=== PATIENT | male | born 1965 | race Two or more races ===

== ENCOUNTER 2024-08-20 12:29 | Emergency (ER) | payer MEDICAID, OTHER ==
[~2024-08-20] VITALS: Ht 160 cm; Wt 64.4 kg
[2024-08-20 13:54] VITALS: BP 146/88; PULSE 88; RESP 16; TEMP 98.2; O2SAT 97
[2024-08-20] MEDS ORDERED: CEPH500C PO (13:55)
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
[2024-08-20] MEDS: SILVER SULFADIAZINE 1 % TOPICAL CREAM 50GM TOP ONE (14:02)
== END 2024-08-20 14:07 | disposition home or self-care (01) ==
LOC: ER 12:44
DX: T25.221A Burn of second degree of right foot, initial encounter (principal); Z79.899 Other long term (current) drug therapy; X10.1XXA Contact with hot food, initial encounter; Y93.89 Activity, other specified; Y92.89 Other specified places as the place of occurrence of the external cause; Y99.8 Other external cause status

== ENCOUNTER 2024-10-31 15:45 | Inpatient (IN) | payer SELFPAY ==
[~2024-10-31] VITALS: Ht 160 cm; Wt 66.6 kg
[~2024-10-31 15:45] MED LIST: CEPH500C PO
--- NOTE | 2024-10-31 16:55 | ED.PDOC ---
Psychiatric HPI Comments ANNA: HPI: Anabel Historian. Past Medical History: Past Surgical History: HPI: 59y M who presents to the ED for chief complaint of tremors - pt states he has not drank ETOH in the past 2 days and states he has not been feeling well and states he is having whole body tremors - pt states he normally drinks 2x weekly for the past 40 years but states 2 days prior, instead of drinking his normal beer, he drank hard liquor and states he has not been feeling well since - pt otherwise denies any other symptoms in the ED - pt in the ED, has noted BP of 162/95 but otherwise stable vitals in the ED - pt denies these symptoms in the past Past Medical History: gastric ulcer Past Surgical History: denies Social History: endorses ETOH, smoking, and drug use. Medications: ASA, Allergies: denies REVIEW OF SYSTEMS: CONSTITUTIONAL: Denies acute: fever, diaphoresis, chills, HEAD: Denies acute: headache, photophobia Eyes: Denies acute: Double vision, vision loss, eye pain, eye discharge. EARS: Denies acute: tinnitus, hearing loss, ear discharge, ear pain, THROAT: Denies acute: sore throat, swelling, difficulty swallowing , pain with swallowing, change in voice. NECK: Denies acute: neck pain, neck swelling, stiff neck. HEART: Denies acute : chest pain, palpitations, LUNGS: Denies acute: SOB, wheezing, cough, hemoptysis ABDOMEN: Denies acute: abdominal pain, Nausea, Vomiting, diarrhea, melena , hematemesis, hematochezia SKIN: Denies acute: rash, redness, lesions, itchiness. EXTREMITIES: Denies acute: calf pain, numbness, tingling, weakness, denies pain in extremity. Denies acute: Low back pain. Neuro: Denies acute: focal neurological deficit, motor or sensory focal neurological deficit, seizure like activity, confusion, dizziness, change in mental status, loss of bowel or bladder function, cauda equina like symptoms. : Denies acute: dysuria, hematuria, flank pain, increase in urinary frequency. PSYCH: Denies acute: hallucination, suicidal ideation, homicidal ideation. PHYSICAL EXAM: General: ----[id number]----acute distress, awake and alert. Head: normocephalic, atraumatic. Neck: supple, trachea is midline, no swelling. Throat: Normal phonation. Eyes:, no erythema, no purulent discharge, no proptosis, no icterus. Heart: regular rate, regular rhythm, no significant murmur appreciated. Lungs: no apparent respiratory distress, Able to speak in full sentences. No wheezing, no rhonchi, no crackles. No stridors Clear to auscultation bilaterally. Abdomen: non tender to palpation, non distended, soft, no guarding, no rebound, + bowel sounds. Neuro: Awake, Alert, oriented to name, self, situation, follows commands GCS=15. Speech is normal. Noted resting tremors Skin: no petechia, no purpura, no cyanosis, non-pale, not jaundice. Lower extremities: --no - Pitting edema no deformity, no focal swelling, no calf TTP. Makes eye contact. moves all four extremities. Face: no apparent facial droop. Ambulating in the ED independently. ED COURSE: DISCLAIMER: This medical document was created using an electronic medical record system with voice recognition software and computerized dictation system. Although this document has been carefully reviewed, there might still be some phonetic and typographical errors. Occasional wrong-word or "sound-alike" substitutions may have occurred due to the inherent limitations of voice recognition software. These areas are purely typographical due to imperfections of the software programs and do not reflect any compromise in the patient's medical care. Please read the chart carefully and recognize, using context, where these substitutions have occurred. Chief Complaint: Withdrawal Time Seen by MD: 16:04 Primary Care Provider: NONE Information Source: Patient Mode of Arrival: Ambulatory Past Medical History PAST MEDICAL HISTORY: Denies Surgical History: Denies all surgeries Family History Family History: Reviewed,noncontributory to illness Social History Smoker: Non-Smoker Alcohol: Denies ETOH Use Drugs: Denies Drug Use Lives In: Home Was a procedure done? Was a procedure done?: No X-Ray, Labs, Meds, VS Vital Signs Date Time Temp Pulse Resp B/P (MAP) Pulse Ox O2 Delivery O2 Flow Rate FiO2 10/31/24 17:53 78 20 98 Room Air* 0 21 7/12/25 17:53 98.1 78 20 184/106 (132) 98 98.1 10/31/24 16:08 97.4 99 18 162/95 (117) 97 97.4 Lab Test 10/31/24 17:00 10/31/24 16:41 Range/Units Urine Color Yellow Yellow Urine Clarity Clear Clear Urine pH 7.0 5.0-9.0 Urine Specific [place] 1.024 1.001-1.035 Urine Protein Trace H Negative Urine Ketones Negative Negative Urine Blood Trace H Negative /uL Urine Nitrite Negative Negative Urine Bilirubin Negative Negative Urine Urobilinogen Normal Negative mg/dL Urine Leukocyte Esterase Negative Negative /uL Urine RBC 4 0 - 3 /hpf Urine Microscopic WBC 2 0-3 /HPF Urine Squamous Epithelial Cells None seen <5 /hpf Urine Bacteria None seen None Seen /hpf Urine Mucus Few None Seen Urine Glucose Normal Normal mg/dL Urine Opiates Screen Neg NEGATIVE Urine Fentanyl Screen Neg NEGATIVE Urine Barbiturates Screen Neg NEGATIVE Urine Phencyclidine Screen Neg NEGATIVE Urine Amphetamines Screen Neg NEGATIVE Urine Benzodiazepines Screen Neg NEGATIVE Urine Cocaine Screen Neg NEGATIVE Urine Cannabinoids Screen Neg NEGATIVE White Blood Count 8.8 4.4-10.8 10^3/uL Red Blood Count 4.56 4.5-5.90 10^6/uL Hemoglobin 15.7 13.5-17.5 g/dL Hematocrit 45.4 41.0-53.0 % Mean Corpuscular Volume 99.7 80.0-100.0 fL Mean Corpuscular Hemoglobin 34.5 H 28.0-32.0 pg Mean Corpuscular Hemoglobin Concent 34.6 32.0-36.0 g/dL Red Cell Distribution Width 13.3 11.8-14.3 % Platelet Count 274 140-450 10^3/uL Mean Platelet Volume 8.2 6.9-10.8 fL Neutrophils (%) (Auto) 70.4 37.0-80.0 % Lymphocytes (%) (Auto) 19.7 10.0-50.0 % Monocytes (%) (Auto) 7.2 0.0-12.0 % Eosinophils (%) (Auto) 2.1 0.0-7.0 % Basophils (%) (Auto) 0.6 0.0-2.0 % Neutrophils # (Auto) 6.2 1.6-8.6 10 ^3/uL Lymphocytes # (Auto) 1.7 0.4-5.4 10 ^3/uL Monocytes # (Auto) 0.6 0-1.3 10 ^3/uL Eosinophils # (Auto) 0.2 0-0.8 10 ^3/uL Basophils # (Auto) 0.1 0-0.2 10 ^3/uL Nucleated Red Blood Cells 0.0 % Sodium Level 141 136-145 mmol/L Potassium Level 4.0 3.5-5.1 mmol/L Chloride Level 105 98-107 mmol/L Carbon Dioxide Level 26 20-31 mmol/L Anion Gap 10 5-15 Blood Urea Nitrogen 6 L 9-23 mg/dL Creatinine 0.83 0.700-1.30 mg/dL Glomerular Filtration Rate Calc 101 >90 mL/min BUN/Creatinine Ratio 7.2 L 10.0-20.0 Serum Glucose 104 74-106 mg/dL Lactic Acid Level 1.5 0.4-2.0 mmol/L Calcium Level 9.8 8.7-10.4 mg/dL Magnesium Level 1.6 1.6-2.6 mg/dL Total Bilirubin 0.3 0.2-1.0 mg/dL Aspartate Amino Transferase (AST) 44 H 13-40 U/L Alanine Aminotransferase (ALT) 35 7-40 U/L Alkaline Phosphatase 105 46-116 U/L Troponin I High Sensitivity 9 </=54 ng/L Total Protein 7.6 5.7-8.2 g/dL Albumin 4.8 3.2-4.8 g/dL Plasma/Serum Blood Alcohol 21.0 H <10 mg/dL Current Medications Medications (Trade) Dose Ordered Sig/Ivone Route Start Time Stop Time Status Last Admin Sodium Chloride 1,000 ml @ 1,000 mls/hr Q1H ONCE IV 10/31/24 16:30 10/31/24 17:29 DC 10/31/24 17:38 Lorazepam (Ativan Inj) 1 mg ONCE ONCE IV 10/31/24 16:30 10/31/24 16:31 DC 10/31/24 17:38 Pantoprazole Sodium (Protonix) 40 mg ONCE ONCE IV 10/31/24 17:00 10/31/24 17:01 DC 10/31/24 17:38 Patient Education/Counseling: Diagnosis, Treatment Family Education/Counseling: No Family Present Departure 1 Departure Time of Disposition: 16:56 Impression: Primary Impression: Alcohol withdrawal Disposition: ADMITTED INPATIENT Admit to: Tele Condition: Guarded Discharged With: Self Critical Care Note Critical Care Time?: No I personally scribed for POP MESSINA DO ([email or web address]) on 10/31/24 at 16:55. Electronically submitted by Nory Chester ([facility]). I personally scribed for POP MESSINA DO ([email or web address]) on 10/31/24 at 19:18. Electronically submitted by Nory Chester ([facility]). POP MESSINA DO Oct 31, 2024 16:55
[2024-10-31 17:05] LABS: Hematocrit 45.4 % (41.0-53.0); Hemoglobin 15.7 g/dL (13.5-17.5); Mean Corpuscular Hemoglobin 34.5 pg (28.0-32.0); Mean Corpuscular Volume 99.7 fL (80.0-100.0); Nucleated Red Blood Cells % 0.0 %
[2024-10-31 17:28] LABS: Alanine Aminotransferase 35 U/L (7-40); Albumin 4.8 g/dL (3.2-4.8); Alkaline Phosphatase 105 U/L (46-116); Anion Gap 10 (5-15); BUN/Creatinine Ratio 7.2 (10.0-20.0); Bilirubin, Total 0.3 mg/dL (0.2-1.0); Calcium 9.8 mg/dL (8.7-10.4); Carbon Dioxide 26 mmol/L (20-31); Chloride 105 mmol/L (98-107); Glucose 104 mg/dL (74-106); Potassium 4.0 mmol/L (3.5-5.1); Sodium 141 mmol/L (136-145); Total Protein 7.6 g/dL (5.7-8.2)
[2024-10-31 17:32] LABS: Blood Urea Nitrogen 6 mg/dL (9-23); Magnesium 1.6 mg/dL (1.6-2.6)
[2024-10-31] MEDS: SODIUM CHLORIDE 0.9% 1,000 ML IV ONE (17:38)
[2024-10-31] MEDS: PANTOPRAZOLE 40 MG/10 ML VIAL INJ IV ONE (17:38)
[2024-10-31] MEDS: LORazepam 2MG/ML-1ML VIAL IV ONE (17:38)
[2024-10-31 17:53] VITALS: PULSE 78; RESP 20; O2SAT 98
[2024-10-31 18:05] LABS: Urine Protein, UAD TRACE (Negative)
[2024-10-31 18:19] LABS: Amphetamine Screen, Urine Neg (NEGATIVE); Barbiturate Scree,Urine Neg (NEGATIVE); Benzodiazephine Screen, Urine Neg (NEGATIVE); Cannabinoid Screen, Urine Neg (NEGATIVE); Cocaine Screen, Urine Neg (NEGATIVE); Opiate Scree,Urine Neg (NEGATIVE); Phencyclidine Screen, Urine Neg (NEGATIVE)
[2024-10-31] MEDS: THIAMINE HCL 100 MG TAB PO ONE (19:53)
--- NOTE | 2024-10-31 20:20 | DVHHP2 ---
Admitting Diagnosis: Alcohol withdrawal History of Present Illness 59y M who presents to the ED for chief complaint of tremors pt states he has not drank ETOH in the past 2 days and states he has not been feeling well and states he is having whole body tremors pt states he normally drinks 2x weekly for the past 40 years but states 2 days prior, instead of drinking his normal beer, he drank hard liquor and states he has not been feeling well since pt otherwise denies any other symptoms in the ED pt in the ED, has noted BP of 162/95 but otherwise stable vitals in the ED pt denies these symptoms in the past past Medical History: gastric ulcer Past Surgical History: denies Social History: endorses ETOH, smoking, and drug use. Medications: ASA, Allergies: denies REVIEW OF SYSTEMS: CONSTITUTIONAL: Denies acute: fever, diaphoresis, chills, HEAD: Denies acute: headache, photophobia Eyes: Denies acute: Double vision, vision loss, eye pain, eye discharge. EARS: Denies acute: tinnitus, hearing loss, ear discharge, ear pain, THROAT: Denies acute: sore throat, swelling, difficulty swallowing , pain with swallowing, change in voice. NECK: Denies acute: neck pain, neck swelling, stiff neck. HEART: Denies acute : chest pain, palpitations, LUNGS: Denies acute: SOB, wheezing, cough, hemoptysis ABDOMEN: Denies acute: abdominal pain, Nausea, Vomiting, diarrhea, melena , hematemesis, hematochezia SKIN: Denies acute: rash, redness, lesions, itchiness. EXTREMITIES: Denies acute: calf pain, numbness, tingling, weakness, denies pain in extremity. Denies acute: Low back pain. Neuro: Denies acute: focal neurological deficit, motor or sensory focal neurological deficit, seizure like activity, confusion, dizziness, change in mental status, loss of bowel or bladder function, cauda equina like symptoms. : Denies acute: dysuria, hematuria, flank pain, increase in urinary frequency. PSYCH: Denies acute: hallucination, suicidal ideation, homicidal ideation. PAST MEDICAL HISTORY: Denies Surgical History: Denies all surgeries Family History Family History: Reviewed,noncontributory to illness Social History Smoker: Non-Smoker Alcohol: Denies ETOH Use Drugs: Denies Drug Use Lives In: Home Allergies: Coded Allergies: NO KNOWN ALLERGIES (Unverified , 08/20/24) Home Meds Active Scripts Cephalexin Monohydrate (Cephalexin) 500 Mg Cap, 1 CAP PO TID, #30 CAP Prov:SHERRY HURD MYLA 08/20/24 Vital Signs Vital Signs Date Time Temp Pulse Resp B/P (MAP) Pulse Ox O2 Delivery O2 Flow Rate FiO2 10/31/24 19:57 82 20 161/98 (119) 98 10/31/24 17:53 Room Air* 0 21 10/31/24 17:53 98.1 98.1 Physical Exam General-69 years old male, well nourished well developed. Mild distress HEENT-atraumatic, normocephalic Heart-regular rate and rhythm Lungs clear to auscultate bilaterally Abdomen soft nontender nondistended Musculoskeletal-no edema cyanosis Neuro-AO x3, no focal deficits. No tremor at this time SEPSIS Sepsis Screen Date sepsis recognized/suspect: Oct 31, 2024 Time Sepsis recognized/suspect: 1550 Recent Procedure: No On Antibiotic Therapy: No Respiratory Rate >20: No Heart Rate >90: Yes Temp<36 C (96.8 F) or >38.3 C: No SBP <90 or MAP <65 mmHG: No New Acute Mental Status Change: No Is the patient on CPAP, BIPAP,: No Physician Orders Multiskill Operator (10/31/24 ) Electrocardigram (10/31/24 16:22) Vital Signs Date Time Temp Pulse Resp B/P (MAP) Pulse Ox O2 Delivery O2 Flow Rate FiO2 10/31/24 19:57 82 20 161/98 (119) 98 10/31/24 17:53 78 20 98 Room Air* 0 21 10/31/24 17:53 98.1 78 20 184/106 (132) 98 98.1 10/31/24 16:08 97.4 99 18 162/95 (117) 97 97.4 Laboratory Tests Test 10/31/24 16:41 Lactic Acid Level 1.5 mmol/L (0.4-2.0) White Blood Count 8.8 10^3/uL (4.4-10.8) Medications Medications Dose Ordered Sig/Ivone Route Start Time Stop Time Status Last Admin Dose Admin Lorazepam 1 mg ONCE ONCE IV 10/31/24 16:30 10/31/24 16:31 DC 10/31/24 17:38 Pantoprazole Sodium 40 mg ONCE ONCE IV 10/31/24 17:00 10/31/24 17:01 DC 10/31/24 17:38 Sodium Chloride 1,000 ml @ 1,000 mls/hr Q1H ONCE IV 10/31/24 16:30 10/31/24 17:29 DC 10/31/24 17:38 Thiamine HCl 100 mg ONCE ONCE PO 10/31/24 19:30 10/31/24 19:32 DC 10/31/24 19:53 Results Labs Test 10/31/24 17:00 10/31/24 16:41 Range/Units Urine Color Yellow Yellow Urine Clarity Clear Clear Urine pH 7.0 5.0-9.0 Urine Specific [place] 1.024 1.001-1.035 Urine Protein Trace H Negative Urine Ketones Negative Negative Urine Blood Trace H Negative /uL Urine Nitrite Negative Negative Urine Bilirubin Negative Negative Urine Urobilinogen Normal Negative mg/dL Urine Leukocyte Esterase Negative Negative /uL Urine RBC 4 0 - 3 /hpf Urine Microscopic WBC 2 0-3 /HPF Urine Squamous Epithelial Cells None seen <5 /hpf Urine Bacteria None seen None Seen /hpf Urine Mucus Few None Seen Urine Glucose Normal Normal mg/dL Urine Opiates Screen Neg NEGATIVE Urine Fentanyl Screen Neg NEGATIVE Urine Barbiturates Screen Neg NEGATIVE Urine Phencyclidine Screen Neg NEGATIVE Urine Amphetamines Screen Neg NEGATIVE Urine Benzodiazepines Screen Neg NEGATIVE Urine Cocaine Screen Neg NEGATIVE Urine Cannabinoids Screen Neg NEGATIVE White Blood Count 8.8 4.4-10.8 10^3/uL Red Blood Count 4.56 4.5-5.90 10^6/uL Hemoglobin 15.7 13.5-17.5 g/dL Hematocrit 45.4 41.0-53.0 % Mean Corpuscular Volume 99.7 80.0-100.0 fL Mean Corpuscular Hemoglobin 34.5 H 28.0-32.0 pg Mean Corpuscular Hemoglobin Concent 34.6 32.0-36.0 g/dL Red Cell Distribution Width 13.3 11.8-14.3 % Platelet Count 274 140-450 10^3/uL Mean Platelet Volume 8.2 6.9-10.8 fL Neutrophils (%) (Auto) 70.4 37.0-80.0 % Lymphocytes (%) (Auto) 19.7 10.0-50.0 % Monocytes (%) (Auto) 7.2 0.0-12.0 % Eosinophils (%) (Auto) 2.1 0.0-7.0 % Basophils (%) (Auto) 0.6 0.0-2.0 % Neutrophils # (Auto) 6.2 1.6-8.6 10 ^3/uL Lymphocytes # (Auto) 1.7 0.4-5.4 10 ^3/uL Monocytes # (Auto) 0.6 0-1.3 10 ^3/uL Eosinophils # (Auto) 0.2 0-0.8 10 ^3/uL Basophils # (Auto) 0.1 0-0.2 10 ^3/uL Nucleated Red Blood Cells 0.0 % Sodium Level 141 136-145 mmol/L Potassium Level 4.0 3.5-5.1 mmol/L Chloride Level 105 98-107 mmol/L Carbon Dioxide Level 26 20-31 mmol/L Anion Gap 10 5-15 Blood Urea Nitrogen 6 L 9-23 mg/dL Creatinine 0.83 0.700-1.30 mg/dL Glomerular Filtration Rate Calc 101 >90 mL/min BUN/Creatinine Ratio 7.2 L 10.0-20.0 Serum Glucose 104 74-106 mg/dL Lactic Acid Level 1.5 0.4-2.0 mmol/L Calcium Level 9.8 8.7-10.4 mg/dL Magnesium Level 1.6 1.6-2.6 mg/dL Total Bilirubin 0.3 0.2-1.0 mg/dL Aspartate Amino Transferase (AST) 44 H 13-40 U/L Alanine Aminotransferase (ALT) 35 7-40 U/L Alkaline Phosphatase 105 46-116 U/L Troponin I High Sensitivity 9 </=54 ng/L Total Protein 7.6 5.7-8.2 g/dL Albumin 4.8 3.2-4.8 g/dL Plasma/Serum Blood Alcohol 21.0 H <10 mg/dL Primary Diagnosis Alcohol withdrawal Plan Thiamine and folate supplement Alcohol withdrawal per poor floor protocol Regular diet IV fluids Full code Lovenox for DVT prophylaxis PPI for GI prophylaxis due to history of ulcer Resume home meds Plan discussed with: Patient Date of Service: Oct 31, 2024 Billing Provider: PAGE BERUMEN MD Common Visit Codes: [id number] INP/OBS CARE (HIGH) PAGE BERUMEN MD Oct 31, 2024 20:19
[2024-10-31] MEDS ORDERED: DOCUSATE SOD 100 MG CAP PO PRN (20:30)
[2024-10-31] MEDS ORDERED: ONDANSETRON HCL 4 MG/2 ML VIAL IV PRN (20:30)
[2024-10-31] MEDS ORDERED: HYDROcodone-ACET 5/325MG TAB PO PRN (20:30)
[2024-10-31] MEDS ORDERED: ACETAMINOPHEN 325 MG TAB PO PRN (20:30)
[2024-10-31] MEDS: SODIUM CHLOR 0.9% PF (SALINE LOCK) 10ML VIAL/SYR IV SCH (22:43)
[2024-10-31] MEDS: PANTOPRAZOLE 40 MG/10 ML VIAL INJ IV SCH (22:44)
[2024-10-31] MEDS: LACTATED RINGER'S 1,000 ML IV ONE (22:45)
[2024-11-01 01:00] VITALS: PULSE 71; RESP 16; O2SAT 93
[2024-11-01] MEDS: ENOXAPARIN SOD 40 MG/0.4 ML SYRINGE SC SCH (08:21)
[2024-11-01] MEDS: FOLIC ACID 1 MG, MULTIPLE VITAMIN 10 ML, MAGNESIUM SULF SDV 50% 8 MEQ, THIAMINE INJ 100... INJ SCH (09:07)
[2024-11-01 10:25] VITALS: PULSE 72; RESP 19; O2SAT 94
--- NOTE | 2024-11-01 10:33 | DVHPN2 ---
Subjective Patient states that his tremors and anxiety has improved Reviewed: Care Plan, H&P, Labs, Medications Changes from previous H/P or p: No Changes General: Per HPI Objective Vitals Vital Signs Date Time Temp Pulse Resp B/P (MAP) Pulse Ox O2 Delivery O2 Flow Rate FiO2 11/01/24 10:24 71 16 129/77 (94) 94 11/01/24 08:00 98.0 98.0 11/01/24 01:00 Room Air* 0 21 General Appearance: Alert, Oriented X3, Cooperative, No acute distress HEENT: Atraumatic, PERRLA Lungs: Clear to auscultation, Normal air movement Cardiovascular: Normal S1, Normal S2 Abdomen: Normal bowel sounds, Soft, No tenderness, No hepatospenomegaly Musculoskeletal: Normal sensory function, Normal motor function Neuro: Normal gait, Normal speech Skin: Dry, Intact Psych/Mental Status: Mental status NL, Mood NL Medications Current Medications Medications Dose Ordered Sig/Ivone Route Start Time Stop Time Status Last Admin Dose Admin Sodium Chloride 10 ml Q8HR IV 10/31/24 22:00 11/01/24 07:05 10 ML Docusate Sodium 100 mg BIDPRN PRN PO 10/31/24 20:30 Acetaminophen 650 mg Q6HP PRN PO 10/31/24 20:30 Acetaminophen/ Hydrocodone Bitart 1 tab Q4HP PRN PO 10/31/24 20:30 Ondansetron HCl 4 mg Q4HP PRN IV 10/31/24 20:30 Enoxaparin Sodium 40 mg DAILY SC 11/01/24 10:00 11/01/24 08:21 40 MG Pantoprazole Sodium 40 mg DAILY IV 10/31/24 20:30 11/01/24 08:21 40 MG Chlordiazepoxide HCl 50 mg Q8H PO 11/01/24 08:30 11/02/24 00:31 11/01/24 08:51 50 MG Chlordiazepoxide HCl 50 mg Q12H PO 11/02/24 09:00 11/02/24 21:01 Chlordiazepoxide HCl 25 mg Q12H PO 11/03/24 09:00 11/03/24 21:01 Chlordiazepoxide HCl 25 mg QAM PO 11/04/24 07:00 11/04/24 07:01 Folic Acid 1 mg/ Multivitamins 10 ml/Magnesium Sulfate 8 meq/ Thiamine HCl 100 mg/Dextrose 1,013.2 ml @ 125.001 mls/hr DAILY@1800 INJ 11/01/24 08:30 11/01/24 09:07 125.001 MLS/HR Laboratory Results Laboratory Tests 10/31/24 16:41 Chemistry Test 10/31/24 16:41 Albumin 4.8 g/dL (3.2-4.8) Calcium Level 9.8 mg/dL (8.7-10.4) Magnesium Level 1.6 mg/dL (1.6-2.6) Total Protein 7.6 g/dL (5.7-8.2) LFT Test 10/31/24 16:41 Alanine Aminotransferase (ALT) 35 U/L (7-40) Alkaline Phosphatase 105 U/L (46-116) Aspartate Amino Transferase (AST) 44 U/L (13-40) H Total Bilirubin 0.3 mg/dL (0.2-1.0) Urinalysis Test 10/31/24 17:00 Urine Color Yellow (Yellow) Urine Clarity Clear (Clear) Urine pH 7.0 (5.0-9.0) Urine Specific [place] 1.024 (1.001-1.035) Urine Protein Trace (Negative) H Urine Ketones Negative (Negative) Urine Blood Trace /uL (Negative) H Urine Nitrite Negative (Negative) Urine Bilirubin Negative (Negative) Urine Urobilinogen Normal mg/dL (Negative) Urine Leukocyte Esterase Negative /uL (Negative) Urine RBC 4 /hpf (0 - 3) Urine Microscopic WBC 2 /HPF (0-3) Urine Squamous Epithelial Cells None seen /hpf (<5) Urine Bacteria None seen /hpf (None Seen) Urine Mucus Few (None Seen) Urine Glucose Normal mg/dL (Normal) Labs and/or images reviewed: Labs reviewed by me, Image(s) reviewed by me Assessment/Plan Assessment/Plan Impression: -alcohol withdrawal syndrome -alcoholism -peptic ulcer disease Plan: -complete current banana bag was switched to p.o. thiamine and MVI in a.m. -continue Librium per protocol -PPI -reassess for discharge in a.m. Total time spent with patient discussing and formulating plan of care: 35 minutes. This medical document was created using an electronic medical record system with [employer] dictation system. Although this document has been carefully reviewed, there may still be some phonetic and typographical errors. These areas are purely typographical due to imperfections of the software programs, and do not reflect any compromise in the patient's medical care. Plan discussed with: Patient, Other (RN) Date of Service: Nov 01, 2024 Billing Provider: JESSE YIN NP Common Visit Codes: [id number] INP/OBS CARE(HIGH) JESSE YIN NP Nov 01, 2024 10:33
[2024-11-01 16:55] VITALS: PULSE 63; RESP 18; O2SAT 95
[2024-11-01 18:20] VITALS: BP 145/94; PULSE 63; RESP 12; TEMP 97.2; O2SAT 95
[2024-11-01 21:00] VITALS: BP 149/98; PULSE 70; RESP 18; TEMP 98.3; O2SAT 99
[2024-11-02 00:54] VITALS: BP 131/86; PULSE 63; RESP 16; TEMP 97.5; O2SAT 95
[2024-11-02 05:00] VITALS: BP 135/85; PULSE 61; RESP 20; TEMP 97.1; O2SAT 94
[2024-11-02 08:00] VITALS: PULSE 96; RESP 18
[2024-11-02 08:50] VITALS: BP 129/89; PULSE 73; RESP 17; TEMP 97.7; O2SAT 95
[2024-11-02] MEDS: MULTIPLE VITAMIN TAB PO SCH (10:02)
[2024-11-02] MEDS: THIAMINE HCL 100 MG TAB PO SCH (10:02)
--- NOTE | 2024-11-02 11:03 | DVHDS2 ---
Discharge Summary Date of Admission Oct 31, 2024 at 20:20 Date of Discharge: Nov 02, 2024 Admitting Diagnosis Acute alcohol withdrawal Labs/Diagnostic Data: Laboratory Results Test 10/31/24 17:00 10/31/24 16:41 Urine Color Yellow (Yellow) Urine Clarity Clear (Clear) Urine pH 7.0 (5.0-9.0) Urine Specific Carbon 1.024 (1.001-1.035) Urine Protein Trace (Negative) Urine Ketones Negative (Negative) Urine Blood Trace /uL (Negative) Urine Nitrite Negative (Negative) Urine Bilirubin Negative (Negative) Urine Urobilinogen Normal mg/dL (Negative) Urine Leukocyte Esterase Negative /uL (Negative) Urine RBC 4 /hpf (0 - 3) Urine Microscopic WBC 2 /HPF (0-3) Urine Squamous Epithelial Cells None seen /hpf (<5) Urine Bacteria None seen /hpf (None Seen) Urine Mucus Few (None Seen) Urine Glucose Normal mg/dL (Normal) Urine Opiates Screen Neg (NEGATIVE) Urine Fentanyl Screen Neg (NEGATIVE) Urine Barbiturates Screen Neg (NEGATIVE) Urine Phencyclidine Screen Neg (NEGATIVE) Urine Amphetamines Screen Neg (NEGATIVE) Urine Benzodiazepines Screen Neg (NEGATIVE) Urine Cocaine Screen Neg (NEGATIVE) Urine Cannabinoids Screen Neg (NEGATIVE) White Blood Count 8.8 10^3/uL (4.4-10.8) Red Blood Count 4.56 10^6/uL (4.5-5.90) Hemoglobin 15.7 g/dL (13.5-17.5) Hematocrit 45.4 % (41.0-53.0) Mean Corpuscular Volume 99.7 fL (80.0-100.0) Mean Corpuscular Hemoglobin 34.5 pg (28.0-32.0) Mean Corpuscular Hemoglobin Concent 34.6 g/dL (32.0-36.0) Red Cell Distribution Width 13.3 % (11.8-14.3) Platelet Count 274 10^3/uL (140-450) Mean Platelet Volume 8.2 fL (6.9-10.8) Neutrophils (%) (Auto) 70.4 % (37.0-80.0) Lymphocytes (%) (Auto) 19.7 % (10.0-50.0) Monocytes (%) (Auto) 7.2 % (0.0-12.0) Eosinophils (%) (Auto) 2.1 % (0.0-7.0) Basophils (%) (Auto) 0.6 % (0.0-2.0) Neutrophils # (Auto) 6.2 10 ^3/uL (1.6-8.6) Lymphocytes # (Auto) 1.7 10 ^3/uL (0.4-5.4) Monocytes # (Auto) 0.6 10 ^3/uL (0-1.3) Eosinophils # (Auto) 0.2 10 ^3/uL (0-0.8) Basophils # (Auto) 0.1 10 ^3/uL (0-0.2) Nucleated Red Blood Cells 0.0 % Sodium Level 141 mmol/L (136-145) Potassium Level 4.0 mmol/L (3.5-5.1) Chloride Level 105 mmol/L (98-107) Carbon Dioxide Level 26 mmol/L (20-31) Anion Gap 10 (5-15) Blood Urea Nitrogen 6 mg/dL (9-23) Creatinine 0.83 mg/dL (0.700-1.30) Glomerular Filtration Rate Calc 101 mL/min (>90) BUN/Creatinine Ratio 7.2 (10.0-20.0) Serum Glucose 104 mg/dL (74-106) Lactic Acid Level 1.5 mmol/L (0.4-2.0) Calcium Level 9.8 mg/dL (8.7-10.4) Magnesium Level 1.6 mg/dL (1.6-2.6) Total Bilirubin 0.3 mg/dL (0.2-1.0) Aspartate Amino Transferase (AST) 44 U/L (13-40) Alanine Aminotransferase (ALT) 35 U/L (7-40) Alkaline Phosphatase 105 U/L (46-116) Troponin I High Sensitivity 9 ng/L (</=54) Total Protein 7.6 g/dL (5.7-8.2) Albumin 4.8 g/dL (3.2-4.8) Plasma/Serum Blood Alcohol 21.0 mg/dL (<10) Other Laboratory Tests 10/31/24 16:41 Brief Hx & Hospital Course: History of Present Illness 59y M who presents to the ED for chief complaint of tremors pt states he has not drank ETOH in the past 2 days and states he has not been feeling well and states he is having whole body tremors pt states he normally drinks 2x weekly for the past 40 years but states 2 days prior, instead of drinking his normal beer, he drank hard liquor and states he has not been feeling well since pt otherwise denies any other symptoms in the ED pt in the ED, has noted BP of 162/95 but otherwise stable vitals in the ED pt denies these symptoms in the past . Course of hospitalization: Patient was started on banana bag, p.o. Librium per [facility] protocol. Patient's anxiety, tremors have resolved. Patient was requesting to have assistance with alcohol rehabilitation as an outpatient. Social service consultation has been placed. No further signs of withdrawal symptoms noted. He is instructed to follow up with his PCP in 1-2 weeks. All questions answered. Physical examination General: Alert and Oriented x3. No acute distress. Well-nourished. Eyes: EOMI. Anicteric. HENT: Moist mucous membranes. Lungs: Clear to auscultation bilaterally. No accessory muscle use. Cardiovascular: Regular rate and rhythm. No murmur. No JVD. Abdomen: Soft, non-tender and non-distended. No palpable masses. Extremities: No edema. Non-tender. Skin: No rashes or lesions. Warm. Neurologic: No focal neurological deficits. CN II-XII grossly intact, but not individually tested. Psychiatric: Cooperative. Appropriate mood and affect. Total time spent with patient discussing and formulating plan of care: 35 minutes. This medical document was created using an electronic medical record system with [employer] dictation system. Although this document has been carefully reviewed, there may still be some phonetic and typographical errors. These areas are purely typographical due to imperfections of the software programs, and do not reflect any compromise in the patient's medical care. Condition at Discharge: Guarded Final Diagnosis/Problems List Acute alcohol withdrawal Secondary diagnosis: -alcoholism -peptic ulcer disease Discharge Disposition: Home Discharge Instruct/Medications Diet: Regular Activity: No Restrictions, As Tolerated Follow Up/Referral: Follow up with PCP in 1-2 weeks Medications: No new medications at this time Scheduled Cephalexin Monohydrate (Cephalexin), 1 CAP PO TID 36 Discharge Statement: "Patient was advised to return to the ER or call 911 if any headaches, dizziness, shortness of breath, chest pain, abdominal pain, bleeding, fevers, or worsening of medical condition. Patient was counseled about treatment plan, medications, possible side effects, patientverbalized understanding. All questions were answered to the best of my ability. This discharge took greater then 30 minutes in planning, reviewing documentation, counseling the patient, and discussing with other team members." ASSESSMENT ASSESSMENT Assessment Acute alcohol withdrawal Date of Service: Nov 02, 2024 Billing Provider: JESSE YIN NP Common Visit Codes: 06831-RGG/[id number] DISCH DAY >30min JESSE YIN NP Nov 02, 2024 11:03
[2024-11-02 12:58] VITALS: BP 134/93; PULSE 74; RESP 16; TEMP 97.2; O2SAT 95
--- NOTE | 2024-11-02 12:58 | ECG ---
[facility] Test Date: 2024-11-01 Test Time: 02:04:22 Pat Name: CAMACHO PIERRE Department: ED Room: 0223 B Gender: M [employer] Automatic: : 1965 Requested By: POP MESSINA Order Number: [id number] Reading MD: Randy Aaron Measurements Intervals Belk Rate: 62 P: 2 MT: 126 QRS: 10 QRSD: 90 T: -15 QT: 464 QTc: 472 Interpretive Statements Sinus rhythm Left ventricular hypertrophy Nonspecific T abnormalities, inferior leads Electronically Signed On 11-02-2024 19:29:23 PDT by Randy Aaron Please click the below link to view image of tracing.
== END 2024-11-02 15:25 | disposition home or self-care (01) | DRG 92 ==
LOC: ER 15:45 → OVERFLOW 20:20 → CENTRAL 11-01 18:01
PROVIDERS: ADMIT Nurse Practitioner Acute Care; ATTEND Nurse Practitioner Acute Care
DX: R25.1 Tremor, unspecified (principal); F10.239 Alcohol dependence with withdrawal, unspecified; F41.9 Anxiety disorder, unspecified; K27.9 Peptic ulcer, site unspecified, unspecified as acute or chronic, without hemorrhage or perforation; Z87.11 Personal history of peptic ulcer disease
CPT/HCPCS: 36415; 80053; 80307; 80320; 81001; 83605; 83735; 84484; 85025; 93005; G0378; J2470